=== PATIENT | female | born 1955 | race Caucasian/White ===

== ENCOUNTER → 2023-06-03 17:44 | Outpatient (REF) | payer MEDICARE, SELFPAY | LOC: PAVMRI 17:44 | PROVIDERS: ATTENDING PHYSICIAN Specialist; FAMILY PHYSICIAN Nurse Practitioner | DX: M25.551 Pain in right hip (principal) | CPT/HCPCS: 73721 ==

== ENCOUNTER 2024-01-21 22:36 | Emergency (ER) | payer MEDICARE, SELFPAY ==
[2024-01-21 22:39] VITALS: BP 137/86
--- NOTE | 2024-01-21 23:21 | ED.GENMED ---
History of Present Illness
General
Chief Complaint: Skin Surface Trauma
Source: patient
Exam Limitations: none
Time Seen by Provider: 01/21/24 22:59
Nursing documentation reviewed up to this point in time: agreed with
History of Present Illness
History of Present Illness:
Patient is a 68-year-old female who complains of a laceration to right lateral hand. She was carrying a bowl prior to arrival and tripped the bowl broke and she sustained a laceration. She is unsure of her last tetanus. She is right-hand dominant.
Past History
Past History
ED Past Medical History: Other (Headaches); Negative HTN, Hypercholesterolemia or IDDM
ED Past Surgical History: Orthopedic
Social History
Tobacco: Non-smoker
Alcohol: Occasional
Personal:
Living: with family
Employment: Employed
Family History
Family History: Hypertension
Review of Systems
Review of Systems
Allergies reviewed?: Yes
All Other Systems: ROS reviewed and negative except as documented in HPI and ROS
Constitutional: Reports no symptoms
Musculoskeletal: Reports other (Laceration to right hand)
Skin: Reports no symptoms
Neurological: Reports no symptoms
Psychiatric: Reports no symptoms
Phy Exam
General Physical Exam
General Presentation: no apparent distress
General age: appears stated age
General Skin: warm and dry
General Habitus: normal
General Mental: alert
General Hydration: appears well hydrated
Neurological Exam
Neurological Exam: alert and oriented x3
Musculoskeletal Exam
Musculoskeletal Exam: other (3 cm full-thickness laceration into subcutaneous tissue to right lateral hand no tendon deficit or tendon injury; no tendon visual normal distal sensation normal cap refill no swelling)
Skin Exam
Skin Exam: normal color and warm/dry
Psychiatric Exam
Psychiatric Exam: normal mood/affect
Course
Orders/Labs/Results
Orders:
Orders
01/21/24 23:11
Hand, Left 3 View [CR Hand - Left Min 3 Views] Stat
Comment:
Reason For Exam: Laceration
01/21/24 23:13
Ibuprofen [Motrin] 600 mg PO NOW STA
Tetanus/Diphth/Acelpertussis [Adacel] 0.5 ml IM .ONCE ONE
Vital Signs
Initial and Last Documented VS:
Initial Vital Signs
Temp Pulse Resp BP Pulse Ox
98.1 F 79 18 137/86 98
01/21/24 22:39 01/21/24 22:39 01/21/24 22:39 01/21/24 22:39 01/21/24 22:39
Last Documented Vital Signs
Temp Pulse Resp BP Pulse Ox
98.1 F 79 18 137/86 98
01/21/24 22:39 01/21/24 22:39 01/21/24 22:39 01/21/24 22:39 01/21/24 22:39
Procedures
Laceration Closure
Left Lateral Hand:
Status of Wound: clean
Size of Wound in cm: 3
Description of Wound Edges: sharp
Preparation: cleaned with saline
Anesthesia: 1% Lidocaine with epi
Revision/Debridement: routine- no revision
Type of Closure: single layer closure and interrupted sutures
Skin Closure Material: 4-0 nylon
Number of sutures: 4
MDM/Problems Addressed
Differential Diagnosis Includes:
Not limited to laceration
MDM/Problems Addressed:
Patient with simple laceration to left hand x-rays negative for foreign body wound repaired as documented. No indication for antibiotics. No tendon deficit or tendon injury wound care reviewed. Tetanus updated.
*Critical Care Note
Total Time (30-74mins, 75-104mins- exclusive of procedures): Not Applicable
ED Attending Note
-
Portions of this chart may have been created with voice recognition software.� Occasional wrong word or��sound alike� substitutions may have occurred due to the inherent limitations of voice recognition software.
Discharge Plan
Departure
Patient Disposition: Home (Routine Discharge)
Date of Disposition: 01/21/24
Time of Disposition: 23:40
Patient with high blood pressure during this ER visit?: Yes
Covid-19: Not Applicable
Discharge Problem:
Laceration of hand
Instructions: Laceration Repair With Stitches (DC)
Prescriptions:
No Action
melatonin 1 MG tablet
1 mg PO HS
trazodone 100 mg tablet
100 mg PO DAILY
ondansetron 8 mg tablet,disintegrating
8 mg PO TID PRN (Reason: nausea and vomiting) Qty: 30 0RF
escitalopram oxalate [Lexapro] 10 mg Tablet
10 mg PO DAILY
riboflavin (vitamin B2) 400 mg tablet
400 mg PO DAILY Qty: 30 0RF
magnesium oxide 400 mg (241.3 mg magnesium) tablet
400 mg PO DAILY Qty: 30 0RF
Referrals:
Annabel Jin CRNP [Family Provider] -
Activity Restrictions/Additional Instructions:
Keep wound clean and dry for 24 hours, after 24 hours wash with soap and water twice a day pat dry and apply small layer of antibiotic and keep covered. See family doctor in the next 2 days as needed for wound check and sutures are removed in 10
to 12 days. Return if any signs infection like increased pain swelling redness drainage fever chills, red streaking.
Interventions
Interventions:
*Risk Screen - Suicide Last Done: 01/21/24 22:39
*General Assessment Last Done: 01/21/24 22:42
*Neglect/Abuse Screening Last Done: 01/21/24 23:19
ED-Skin Assessment Last Done: 01/21/24 22:56
Discharge Date and Time
Print Language: SLOVENIAN
[2024-01-21] MEDS: MOTRIN 600 MG PO (23:25)
[2024-01-21] MEDS: ADACEL 0.5 ML IM (23:49)
[2024-01-21 23:57] VITALS: BP 86/77
== END 2024-01-21 23:58 | disposition home or self-care (01) ==
LOC: EMR 22:36
PROVIDERS: EMERGENCY PHYSICIAN Emergency Medicine; FAMILY PHYSICIAN Nurse Practitioner
DX: S61.412A Laceration without foreign body of left hand, initial encounter (principal); W01.110A Fall on same level from slipping, tripping and stumbling with subsequent striking against sharp glass, initial encounter; Z23 Encounter for immunization
CPT/HCPCS: 12002; 90471; 99283; 73130; 90715

== ENCOUNTER 2024-02-12 15:32 | Emergency (ER) | payer MEDICARE, SELFPAY ==
[2024-02-12 15:34] VITALS: BP 120/82
[2024-02-12 16:05] LABS: % Eosinophils 0.1 % (0-6); % Immature Granulocytes 0.3 % (0-0.5); % Lymphocytes 14.9 % (20.5-51.1); % Monocytes 4.6 % (1.7-9.3); % Neutrophils 79.1 % (42.2-75.2); Absolute Basophils 0.1 10^3/uL (0-0.2); Absolute Monocytes 0.3 10^3/uL (0.1-0.6); Absolute Neutrophils 5.4 10^3/uL (1.4-6.5); Hematocrit 40.1 % (37.0-47.0); Hemoglobin 13.5 g/dL (12.0-16.0); Mean Corp Hgb Conc. 33.7 g/dL (33.0-37.0); Mean Corpuscular Hgb 31.2 pg (27.0-31.0); Mean Corpuscular Volume 92.6 fL (81.0-99.0); Mean Platelet Volume 9.4 fL (7.4-10.4); Nucleated Red Blood Cells % 0 %; Platelet Count 294 10^3/uL (130-400); Red Blood Cell Count 4.33 10^6/uL (4.20-5.40); Red Cell Dist. Width 12.8 % (11.5-14.5); Urine Albumin Trace (Neg - Trace); Urine Bilirubin 1+ (Negative); Urine Character Slightly Cloudy (Clear); Urine Color Yellow; Urine Glucose Negative (Negative); Urine Ketone 1+ (Negative); Urine Leukocyte 1+ (Negative); Urine Nitrite Negative (Negative); Urine Occult Blood Trace (Negative); Urine Urobilinogen Negative (Neg - 1+); White Blood Cell Count 6.8 10^3/uL (4.8-10.8)
[2024-02-12] MEDS: BENADRYL 25 MG IV (16:11)
[2024-02-12] MEDS: NSS 1000 IV (16:11)
[2024-02-12] MEDS: COMPAZINE 10 MG IV (16:11)
[2024-02-12 16:15] VITALS: BMI 22.5
[2024-02-12 16:18] LABS: Urine Mucus Moderate
[2024-02-12 16:19] LABS: Urine Bacteria Moderate (Negative)
[2024-02-12 16:24] LABS: ALT (SGPT) 17 U/L (0-35); AST (SGOT) 25 U/L (14-36); Albumin 4.4 g/dl (3.5-5.0); Alkaline Phosphatase 100 U/L (38-126); Blood Urea Nitrogen 15 mg/dl (7-17); Calcium 9.4 mg/dl (8.4-10.2); Carbon Dioxide 29 mmol/L (22-30); Chloride 103 mmol/L (98-107); Estimated Creatinine Clearance 93 ml/min; Glucose 135 mg/dl (70-99); Lipase 67 U/L (23-300); Potassium 3.8 mmol/L (3.5-5.1); Sodium 140 mmol/L (135-145); Total Bilirubin 0.7 mg/dl (0.2-1.3); Total Protein 6.6 g/dl (6.3-8.2); eGFR > 60.00
--- NOTE | 2024-02-12 16:37 | ED.GENMED ---
History of Present Illness
General
Chief Complaint: Abdominal Symptoms
Source: patient
Exam Limitations: none
Time Seen by Provider: 02/12/24 15:40
Nursing documentation reviewed up to this point in time: agreed with
History of Present Illness
History of Present Illness:
68-year-old female past medical history of migraines presenting to the emergency department today with concerns of nausea vomiting diarrhea starting 5 hours prior to arrival to the emergency department. Also has a headache which she claims feels
similar to a migraine. Does have a history of migraines. Denies any chest pain shortness of breath fevers.
Past History
Past History
ED Past Medical History: Other (Headaches); Negative HTN, Hypercholesterolemia or IDDM
ED Past Surgical History: Orthopedic
Social History
Tobacco: Non-smoker
Alcohol: Occasional
Personal:
Living: with family
Employment: Employed
Family History
Family History: Hypertension
Review of Systems
Review of Systems
Allergies reviewed?: Yes
All Other Systems: ROS reviewed and negative except as documented in HPI and ROS
Phy Exam
Physical Exam
Physical Exam:
GENERAL: Alert , in no apparent distress
EYE: pupils equal and reactive
NECK: Supple, no significant adenopathy.
ENT: o/p clr, mmm.
CARDIAC: Regular rate and rhythm .
LUNGS: Clear breath sounds bilaterally, no acute respiratory distress, no wheezes/rales/rhonchi
ABDOMEN: Soft, without focal tenderness, no r/g, no cvat
NEUROLOGICAL: Alert and oriented, no focal neuro deficits
SKIN: Warm and dry, skin intact.
MUSCULOSKELETAL: No edema, well perfused.
PSYCH: Normal and appropriate interaction.
Course
Orders/Labs/Results
Orders:
Orders
02/12/24 15:58
Complete Blood Count/With Diff Urgent
Comprehensive Metabolic Panel Urgent
Lipase Urgent
Urinalysis Reflex To Culture Urgent
Date Specimen was Collected: 02/12/24
Time Specimen was Collected: 15:53
Urine Microscopic Reflex Cult Urgent
Urine Culture Urgent
WICHO Source: U
Specimen Description:
Date Specimen was Collected: 02/12/24
Time Specimen was Collected: 15:53
02/12/24 16:06
0.9% Sodium Chloride 1000 ml [Nss] 1,000 ml IV BOLUS
Diphenhydramine [Benadryl] 25 mg IV NOW STA
Prochlorperazine [Compazine] 10 mg IV NOW STA
02/12/24 16:07
EKG [Electrocardiogram (*1)] Urgent
Reason for Study: Abdominal Pain
EKG- Treatment ONCE
02/12/24 17:01
Ketorolac [Toradol] 15 mg IV NOW STA
Ondansetron Injectable [Zofran] 4 mg IV NOW STA
Abnormal Lab Results
02/12/24
15:58
MCH 31.2 H pg
(27.0-31.0)
Absolute Lymphs (auto) 1.0 L 10^3/uL
(1.2-3.4)
Neutrophils % 79.1 H %
(42.2-75.2)
Lymphocytes % 14.9 L %
(20.5-51.1)
Creatinine 0.4 L mg/dL
(0.6-1.0)
Glucose 135 H mg/dl
(70-99)
Urine Ketones 1+ A
(Negative)
Ur Occult Blood Reflex Trace A
(Negative)
Urine Bilirubin 1+ A
(Negative)
Leukocyte Esterase Rfl 1+ A
(Negative)
Urine RBC 3-6 A /HPF
(0-2)
Urine Bacteria (Reflex) Moderate A
(Negative)
02/12/24 15:58
02/12/24 15:58
Vital Signs
Initial and Last Documented VS:
Initial Vital Signs
Temp Pulse Resp BP Pulse Ox
97.8 F 84 20 120/82 99
02/12/24 15:34 02/12/24 15:34 02/12/24 15:34 02/12/24 15:34 02/12/24 15:34
Last Documented Vital Signs
Temp Pulse Resp BP Pulse Ox
97.8 F 78 18 145/82 100
02/12/24 15:34 02/12/24 17:28 02/12/24 17:28 02/12/24 17:28 02/12/24 17:28
MDM/Problems Addressed
MDM/Problems Addressed:
68-year-old female presenting to the emergency department with abrupt onset of nausea vomiting diarrhea. Starting roughly 5 hours prior to arrival. Vomited multiple times initially now with loose brown stool multiple episodes. Some stomach
cramping intermittently but no ongoing abdominal pain. Also has a developing headache that feels similar to previous migraines. With the abrupt onset of nausea vomiting diarrhea and lack of reproducible abdominal pain symptoms seem most consistent
with likely stomach bug. Plan for symptomatic treatment and reassessment. Symptoms improving after receiving Compazine and Benadryl. She will had a mild headache was given Toradol as well as an additional dose of Zofran. At this point
significant symptom improvement. Labs unremarkable. Stable for discharge. Return precautions given.
*Critical Care Note
Total Time (30-74mins, 75-104mins- exclusive of procedures): Not Applicable
ED Attending Note
-
Portions of this chart may have been created with voice recognition software.� Occasional wrong word or��sound alike� substitutions may have occurred due to the inherent limitations of voice recognition software.
Discharge Plan
Departure
Patient Disposition: Home (Routine Discharge)
Date of Disposition: 02/12/24
Time of Disposition: 17:13
Patient with high blood pressure during this ER visit?: No
Condition: Good
Covid-19: Not Applicable
Discharge Problem:
Nausea vomiting and diarrhea, Headache
Instructions: Nausea and Vomiting, Adult (DC)
Prescriptions:
New
ondansetron 4 mg tablet,disintegrating
4 mg PO Q6H PRN (Reason: nausea and vomiting) Qty: 7 0RF
No Action
melatonin 1 MG tablet
1 mg PO HS
trazodone 100 mg tablet
100 mg PO DAILY
ondansetron 8 mg tablet,disintegrating
8 mg PO TID PRN (Reason: nausea and vomiting) Qty: 30 0RF
escitalopram oxalate [Lexapro] 10 mg Tablet
10 mg PO DAILY
riboflavin (vitamin B2) 400 mg tablet
400 mg PO DAILY Qty: 30 0RF
magnesium oxide 400 mg (241.3 mg magnesium) tablet
400 mg PO DAILY Qty: 30 0RF
Referrals:
Annabel Jin CRNP [Family Provider] -
Activity Restrictions/Additional Instructions:
You came to the emergency department today with concerns of nausea vomiting diarrhea. This is likely from a stomach bug. Please take the Zofran as needed every 6 hours. Please start to rehydrate including electrolytes and slowly progress her diet
over the next few days. Return to the emergency department for any worsening, new or concerning symptoms.
Interventions
Interventions:
*Risk Screen - Suicide Last Done: 02/12/24 16:14
*General Assessment Last Done: 02/12/24 16:14
*Neglect/Abuse Screening Last Done: 02/12/24 16:14
ED- Fall Risk Assessment Last Done: 02/12/24 17:28
*ED COVID-19 Vaccine History Last Done: 02/12/24 16:14
*Nursing Disposition Last Done: 02/12/24 17:28
[facility]-[id number]-Odtogzhvrs Assessment Last Done: 02/12/24 16:03
Discharge Date and Time
Discharge Date/Time: 02/12/24 17:29
Print Language: URDU
[2024-02-12] MEDS: TORADOL 15 MG IV (17:05)
[2024-02-12] MEDS: ZOFRAN 4 MG IV (17:05)
[2024-02-12 17:28] VITALS: BP 145/82
== END 2024-02-12 17:29 | disposition home or self-care (01) ==
LOC: EMR 15:32
PROVIDERS: Physician Assistant; EMERGENCY PHYSICIAN Emergency Medicine; FAMILY PHYSICIAN Nurse Practitioner
DX: R11.2 Nausea with vomiting, unspecified (principal); R19.7 Diarrhea, unspecified; R51.9 Headache, unspecified; Z82.49 Family history of ischemic heart disease and other diseases of the circulatory system
CPT/HCPCS: 99283; 96374; 96375; 96361; 80053; 81003; 81015; 83690; 85025; 87086; 93005

== ENCOUNTER → 2024-04-08 16:03 | Outpatient (REF) | payer MEDICARE, SELFPAY ==
[2024-04-08 17:17] LABS: % Basophils 1.2 % (0-2); % Eosinophils 2.3 % (0-6); % Immature Granulocytes 0.3 % (0-0.5); % Lymphocytes 35.9 % (20.5-51.1); % Monocytes 7.3 % (1.7-9.3); Absolute Basophils 0.1 10^3/uL (0-0.2); Absolute Eosinophils 0.2 10^3/uL (0-0.7); Absolute Lymphocytes 2.3 10^3/uL (1.2-3.4); Absolute Monocytes 0.5 10^3/uL (0.1-0.6); Absolute Neutrophils 3.4 10^3/uL (1.4-6.5); Hematocrit 42.1 % (37.0-47.0); Hemoglobin 13.8 g/dL (12.0-16.0); Mean Corp Hgb Conc. 32.8 g/dL (33.0-37.0); Mean Corpuscular Volume 94.6 fL (81.0-99.0); Mean Platelet Volume 10.1 fL (7.4-10.4); Nucleated Red Blood Cells % 0 %; Platelet Count 299 10^3/uL (130-400); Red Blood Cell Count 4.45 10^6/uL (4.20-5.40); Red Cell Dist. Width 12.4 % (11.5-14.5); White Blood Cell Count 6.4 10^3/uL (4.8-10.8)
[2024-04-08 17:41] LABS: Blood Urea Nitrogen 19 mg/dl (7-17); Calcium 9.4 mg/dl (8.4-10.2); Carbon Dioxide 29 mmol/L (22-30); Glucose 95 mg/dl (70-99); eGFR > 60.00
[2024-04-08 17:44] LABS: Chloride 101 mmol/L (98-107); Potassium 4.4 mmol/L (3.5-5.1); Sodium 140 mmol/L (135-145)
== END ==
LOC: REG 16:03
PROVIDERS: ATTENDING PHYSICIAN Orthopaedic Surgery; FAMILY PHYSICIAN Nurse Practitioner
DX: Z01.818 Encounter for other preprocedural examination (principal)
CPT/HCPCS: 36415; 80048; 85025; 93005